=== PATIENT | female | born 1990 | race African-American/Black ===

== ENCOUNTER 2017-05-30 10:09 | Emergency (ER) | payer SELFPAY ==
[~2017-05-30] VITALS: Ht 162.6 cm; Wt 50.8 kg
[2017-05-30 10:15] VITALS: Ht 162.6 cm; Wt 50.8 kg
[2017-05-30 14:12] VITALS: BP 104/57
== END 2017-05-30 14:12 | disposition home or self-care (01) ==
LOC: ED 10:09
DX: N83.8 Other noninflammatory disorders of ovary, fallopian tube and broad ligament (principal)